=== PATIENT | female | born 1930 | race Caucasian/White ===

== ENCOUNTER 2017-03-13 09:17 | Emergency (ER) | payer OTHER, MEDICARE ==
[~2017-03-13] VITALS: Ht 167.6 cm; Wt 72.6 kg
--- NOTE | 2017-03-13 09:21 | ED GENERAL ADULT ---
History of Present Illness General Chief Complaint: General Adult Stated Complaint: BIBA FOR L SIDED WEAKNESS Source: patient, EMS Exam Limitations: patient's age, confusion, dementia, poor historian, physical impairment Vital Signs & Intake/Output Vital Signs & Intake/Output ED Intake and Output 03/14 0000 03/13 1200 Intake Total Output Total 1 Balance -1 Output, Stool 1 Patient 160 lb Weight Allergies Coded Allergies: NO KNOWN ALLERGIES (03/13/17) Reconcile Medications Acetaminophen (Tylenol Arthritis) 650 MG TABLET.ER 1 TAB PO TID PRN PAIN ( Reported) Losartan/Hydrochlorothiazide (Losartan-Hctz 100-12.5 MG Tab) 100 MG-12.5 MG TABLET 1 TAB PO DAILY HEART (Reported) Metoprolol Succinate 100 MG TAB.ER.24H 1 TAB PO DAILY HEART (Reported) Mirtazapine 30 MG TABLET 1 TAB PO QPM SLEEP (Reported) Omeprazole 20 MG CAPSULE.DR 1 CAP PO QPM GI (Reported) Verapamil HCl 120 MG TABLET 1 TAB PO BID HEART (Reported) Triage Nurses Notes Reviewed? yes Onset: Abrupt Duration: unknown duration Timing: unknown HPI: 03/13/17 10 AM This is a 86-year-old female with a past medical history of dementia who presents to the emergency Department from assisted living with altered mental status and left-sided weakness. According to EMS the patient was found on the floor by her aid this morning. She was not moving her left side. That time she was last normal is unknown. The onset of the symptoms were abrupt, the duration is really unknown, the severity is significant as her symptoms required her to come to the emergency department for care. On physical examination she does have left-sided facial weakness. She has a gag reflex. She has weakness to the left upper and lower extremity. Past History Travel History Traveled to [place] past 21 day No Medical History Any Pertinent Medical History? see below for history Surgical History Surgical History: non-contributory Psychosocial History Who do you live with Patient/Self What is your primary language Mal[place]ian Family History Hx Contributory? No Review of Systems Review of Systems Constitutional: Reports: no symptoms. Denies: fever. EENTM: Reports: no symptoms. Respiratory: Denies: short of breath. Cardiovascular: Denies: chest pain. GI: Denies: abdominal pain. Genitourinary: Reports: no symptoms. Musculoskeletal: Denies: back pain. Skin: Denies: rash. Neurological/Psychological: Reports: weakness. Denies: headache. Hematologic/Endocrine: Denies: bruising, bleeding. Physical Exam Physical Exam General Appearance: alert, awake, anxious, moderate distress Head: LEFT FACIAL DROOP Eyes: Bilateral: normal appearance, PERRL, EOMI. Ears, Nose, Throat: POSITIVE GAG REFLEX Neck: normal inspection, supple Respiratory: chest non-tender, no respiratory distress Cardiovascular: regular rate/rhythm Peripheral Pulses: 4+ radial (R), 4+ radial (L) Gastrointestinal: soft, non-tender Back: decreased range of motion Extremities: pedal edema Neurologic/Psych: awake, alert (PATIENT), oriented x 3, LEFT UPPER AND LOWER EXTREMITY WEAKNESS Skin: intact, normal color, warm/dry Core Measures ACS in differential dx? No CVA/TIA Diagnosis: Yes NIH Stroke Scale: Total 6 Dt/Tm Last Known Well: No Date Last Known Well: 03/12/17 Neurological S/S of CVA: Facial Hemiparesis, Left Hemiparesis Symptom start date: 03/12/17 Reason tPA not ordered: Medical Contraindication Severe Sepsis Present: No Septic Shock Present: No Progress Differential Diagnoses I considered the following diagnoses in my evaluation of the patient: [CVA, TIA, intracranial bleed, sepsis] Plan of Care: Orders Procedure Date/time Status TROPONIN LEVEL 03/13 931 Complete PARTIAL THROMBOPLASTIN TIME 03/13 931 Complete PROTHROMBIN TIME 03/13 931 Complete COMPREHENSIVE METABOLIC PANEL 03/13 931 Complete CBC WITHOUT DIFFERENTIAL 03/13 931 Complete EKG 03/13 09 Active Laboratory Tests 03/13/17 0957: Anion Gap 14, Estimated GFR > 60, BUN/Creatinine Ratio 28.8 H, Glucose 199 H, Calcium 9.4, Total Bilirubin 0.6, AST 19, ALT 27, Alkaline Phosphatase 93, Troponin I < 0.01, Total Protein 7.6, Albumin 4.3, Globulin 3.3, Albumin/ Globulin Ratio 1.3, PT 11.6, INR 1.11, APTT 32, CBC w Diff NO MAN DIFF REQ, RBC 4.69, MCV 92.4, MCH 30.5, RDW 13.9, MPV 8.3, Gran % 71.3, Lymphocytes % 21.5, Monocytes % 6.5, Eosinophils % 0.6, Basophils % 0.1, Absolute Granulocytes 4.9, Absolute Lymphocytes 1.5, Absolute Monocytes 0.4, Absolute Eosinophils 0, Absolute Basophils 0, PUBS MCHC 33.0 Initial ED EKG: NSR Departure Departure Disposition: OTHER GENERAL HOSPITAL (ACUTE) Condition: Stable Clinical Impression Primary Impression: CVA (cerebral vascular accident) Referrals: AGUILAR PINEDA MD (PCP/Family) Departure Forms: Customer Survey General Discharge Information Comments 03/13/17 11:50 AM I spoke with the nurse who evaluated the [facility]. She reported to me that the nurses aide went into check on her early this morning and that the patient was "not right". She refused to get out of bed and had verbalized that she was not feeling well. The patient was last seen normal, last night at dinner. When the nurse Elsa evaluated her at approximately 8:30 this morning she had left-sided weakness. She stated the onset of the symptoms may have occurred any time during the night. I spoke with the neurologist at [facility] who accepted the patient to the neurology stroke service for further evaluation, MRI scanning and possible interventional therapy. He was in agreement that the patient would not be a candidate for TPA. Blood work was unremarkable CT scan of the head negative EKG reveals normal sinus rhythm nonspecific T-wave abnormality The patient was transferred to [facility] for further care. She was given aspirin 325 mg by mouth. She did have a gag reflex. The plan of care was discussed at length with the patient's son. Critical Care Note Critical Care Note Critical Care Time: 30-74 min
[2017-03-13] MEDS ORDERED: OMEPRAZOLE20 M2 PO (09:40)
[2017-03-13] MEDS ORDERED: METOPROLOL SUC100 M2 PO (09:41)
[2017-03-13] MEDS ORDERED: MIRTAZAPINE30 M2 PO (09:41)
[2017-03-13] MEDS ORDERED: LOSARTAN-HCTZ1 EACH PO (09:41)
[2017-03-13] MEDS ORDERED: VERAPAMIL HCL120 M3 PO (09:41)
[2017-03-13] MEDS ORDERED: TYLENOL ARTHRI650 M1 PO (09:42)
[2017-03-13 10:20] LABS: ABSOLUTE BASOPHIL COUNT 0 /CUMM (0.0-0.2); ABSOLUTE EOSINOPHIL COUNT 0 /CUMM (0.0-0.7); ABSOLUTE GRANULOCYTE CT 4.9 /CUMM (1.4-6.5); ABSOLUTE LYMPH COUNT 1.5 /CUMM (1.2-3.4); ABSOLUTE MONOCYTE COUNT 0.4 /CUMM (0.10-0.60); BASOPHIL % 0.1 % (0.0-2.0); EOSINOPHIL % 0.6 % (0-5); GRANULOCYTE % 71.3 % (42.2-75.2); HEMATOCRIT 43.3 % (37-47); MEAN CORPUSCULAR HGB 30.5 PG (27.0-31.0); MEAN CORPUSCULAR VOLUME 92.4 FL (81.0-99.0); MEAN PLATELET VOLUME 8.3 FL (7.4-10.4); PLATELET COUNT 247 /CUMM (130-400); RBC DISTRIBUTION WIDTH 13.9 % (11.5-14.5); RED BLOOD CELL CT 4.69 /CUMM (4.20-5.40); WHITE BLOOD CELL COUNT 6.9 /CUMM (4.8-10.8)
[2017-03-13 11:04] LABS: PT 11.6 SEC (9.4-12.5); PTT 32 SEC (25-37)
[2017-03-13 11:34] VITALS: BP 151/68
--- NOTE | 2017-03-13 11:59 | CT SCAN REPORT ---
EXAMINATION: CT HEAD WITHOUT CONTRAST CLINICAL INFORMATION: Mental status change, left-sided weakness COMPARISON: 09/13/2009 CT scan of head TECHNIQUE: Contiguous axial imaging was performed from the skull base to vertex without intravenous administration of contrast. DLP: 1201.41 mGy-cm FINDINGS: There is age-appropriate loss of brain parenchyma with associated dilatation of CSF space. There are scattered areas of periventricular and deep white matter hypodensities, nonspecific findings and could represent chronic ischemic changes of small vessel disease. Atherosclerotic calcifications of the intracranial parts of the vertebral arteries and cavernous parts of internal carotid arteries noted. There is no evidence of acute intracranial hemorrhage or territorial infarction. No abnormal mass effect or midline shift is seen. Garcia to white matter differentiation is well preserved. No extra-axial fluid collections are identified. There is CSF density within the sella, can represent partial empty sella. The ventricles are normal in size. The osseous structures and soft tissues are normal. The mastoid air cells are well aerated. There is a 2.1 cm soft tissue density within the right maxillary sinus, representing mucous retention cyst. Maxillary denture in place. IMPRESSION: No acute intracranial hemorrhage or CT sign of acute territorial ischemia. Atherosclerosis. 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 Findings were reported to Dr. Montoya on 03/13/2017 at 11:55 AM.
== END 2017-03-13 13:10 | disposition short-term general hospital (02) ==
LOC: ERH 09:17
PROVIDERS: Emergency Medicine
DX: I63.9 Cerebral infarction, unspecified (principal)
CPT/HCPCS: 93005; 93010